=== PATIENT | male | born 1935 | race Caucasian/White ===

== ENCOUNTER 2019-04-01 09:38 | Emergency (ER) | payer MEDICARE, OTHER, SELFPAY ==
--- NOTE | ~2019-04-01 | CT_ITS ---
EXAMINATION: CT abdomen pelvis w con EXAM DATE: 04/01/2019 14:20 INDICATION: Abdominal pain and constipation. TECHNIQUE: Spiral CT of the abdomen and pelvis was performed following intravenous injection of 100 m L Omnipaque 350. Axial, coronal and sagittal images were reviewed. The dose-length product (DLP) fo r this examination was 260.54 mGy-cm. The exposure was tailored according to patient size (auto mA e xposure control), and iterative reconstruction (ASIR) was used as additional dose reduction technique . Comparison is made to prior examination from 06/13/2018. FINDINGS: The liver, spleen, adrenal glands and pancreas are unremarkable. Gallbladder is unremarkab le. No biliary obstruction. Portal and splenic veins are patent. Kidneys enhance symmetrically. T here is no hydronephrosis. The prostate is unremarkable. Bladder is severely distended. There is no retroperitoneal or pelvic lymphadenopathy. There is extensive scattered arterial sclerotic disea se. Abdominal aorta is normal in caliber. There is fecal impaction with the rectal vault measuring up to 8.6 cm, moderate amount of colonic sto ol proximal to this. Normal appendix. There are no osteoblastic or osteolytic lesions identified. T he stomach and small bowel are unremarkable. There is expected amount of colonic stool. No free in traperitoneal gas. The heart is normal in size. There are no pericardial or pleural effusions. Th e lung bases are unremarkable. Chronic appearing mild compression fracture of L4 at the superior end plate. IMPRESSION: 1. Fecal impaction, constipation. 2. Distended bladder. Reviewed, dictated and finalized at location B. 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
[2019-04-01 09:40] VITALS: BP 108/58; PULSE 88; RESP 20; TEMP 36.1; O2SAT 99
--- NOTE | 2019-04-01 10:48 | PC.NURSE ---
PT TO INTAKE DESK ASKING ABOUT WAIT, STATES THAT HER HAS BEEN IN A LOT OF PAIN, RN ASKS IF SOMETHING HAS CHANGED SINCE HE WAS TRIAGED, DENIES.
--- NOTE | 2019-04-01 12:12 | PC.NURSE ---
pt to room 08 per dean Sargent.
[2019-04-01 12:16] VITALS: BP 124/66; PULSE 67; O2SAT 100
--- NOTE | 2019-04-01 13:33 | ED.GENADULT ---
HPI - General Adult General Chief complaint: Unspecified Stated complaint: Constipation Time Seen by Provider: 04/01/19 13:32 Source: patient Mode of arrival: ambulatory Limitations: dementia History of Present Illness HPI narrative: Pt is an 83 y/o male with a H/O dementia, who presents to the ED with c/o intermittent generalized ABD pain for a couple of days. Per spouse, pt has been c/o intermittent ABD pain and his last BM was a couple of days ago. Spouse states that he gets flare ups of constipation in the past and he takes metamucil daily. Pt's spouse gave him a smooth lax (generic for Miralax) this morning with no relief. He denies pain in the ED bed. Pt's spouse denies pt having nausea or vomiting. Spouse states that he has been eating and drinking normally. A complete HPI is limited d/t pt's dementia. MD complaint: ABD pain Onset (ago): day(s) (2) Location: abdomen Severity: similar to prior episodes Pain Consistency: intermittent Relieving factors: none Associated symptoms: other (constipation) Treatments prior to arrival: other (laxatives) Related Data Home Medications Medication Instructions Recorded Confirmed allopurinol 100 mg tablet 100 mg PO DAILY 02/05/19 amlodipine 5 mg tablet 5 mg PO DAILY 02/05/19 aspirin 81 mg tablet,delayed 81 mg PO DAILY 02/05/19 release clopidogrel 75 mg tablet 75 mg PO DAILY 02/05/19 ezetimibe 10 mg tablet 10 mg PO DAILY 02/05/19 folic acid 400 mcg tablet 0.4 mg PO DAILY 02/05/19 zwhiipfgwbn-qgwrfzgxaeh-wgw D3 750 tablet PO 02/05/19 mg-600 mg-500 unit tablet hydrochlorothiazide 25 mg tablet 25 mg PO DAILY 02/05/19 losartan 25 mg tablet 25 mg PO DAILY 02/05/19 omega3-dha 200 mg-epa 300 mg-othr cap PO 02/05/19 om3 100 mg-fish oil 1,000 mg capsule psyllium husk 0.52 gram capsule 0.52 gm PO DAILY 02/05/19 Allergies Allergy/AdvReac Type Severity Reaction Status Date / Time dipyridamole Allergy Unknown Confusion Verified 12/13/18 09:48 Review of Systems Review of Systems: Narrative: A complete ROS is limited d/t pt's dementia Gastrointestinal: Gastrointestinal: Reports abdominal pain and Reports constipation PMFSH Past Medical History Medical History (Updated 04/01/19 @ 16:26 by Xena Thapa MD) Abnormality of gait Balance disorder Benign reactive hypertension Dementia Mixed hyperlipidemia Stroke Surgical History Surgical History (Updated 04/01/19 @ 13:50 by Cyndi Fatima) No significant past surgical history Social History Social History (Updated 04/01/19 @ 13:51 by Cyndi Fatima) Smoking packs per day: 0.5 Smoking cigarettes per day: 10.0 Smoking status: Former smoker Tobacco type: cigarettes Second hand tobacco smoke exposure: No Smoking end date: 03/06/1949 Alcohol intake: never Substance use: never Substance use type: does not use Gender identity (if verbalized by the patient): Male Comments Pt's PCP is Dr. Fuller. Exam Const: General: cooperative, no acute distress, alert and other (frail, elderly) Orientation/consciousness: Other orientation findings (forgetfull) Limitations: no limitations HENMT: Mouth: Yes lip normal and Yes moist mucous membranes Resp: Effort & Inspection: normal respiratory effort Auscultation: clear to auscultation bilaterally Cardio: Rate: regular rate Rhythm: regular rhythm Heart sounds: no murmurs Peripheral pulses: dorsalis pedis present bilateral GI: GI Palp: Yes Soft to palpation and Yes Tenderness to palpation present (GI) (RLQ) Auscultation: normal bowel sounds Skin: General skin exam: normal color Neuro: Cognition (Neuro): normal cognition Speech: normal speech Extrem: General: normal to inspection, full ROM and no clubbing, cyanosis or edema Psych: Mental Status: mental status grossly normal Affect: normal affect Attitude: cooperative Course Course Emergency Course: Patient with findings of constipation noted on CT. No other acute abnor
[2019-04-01 14:05] LABS: Basophils Percent Auto 0.5 % (0.2-1.2); Eosinophils Percent Auto 0.1 % (0-4.4); Hematocrit 44.4 % (42.0-52.0); Hemoglobin 14.5 g/dL (14.0-18.0); Immature Granulocyte Absolute 0.02 K/mm3 (0.00-0.031); Immature Granulocyte Percent A 0.2 % (0-0.5); Lymphocytes Absolute Auto 0.86 K/mm3 (0.9-3.2); Lymphocytes Percent Auto 10.1 % (18.3-44.2); Mean Corpuscular HGB Conc 32.7 g/dl (32-36); Mean Corpuscular Hemoglobin 30.3 pg (26-34); Mean Corpuscular Volume 92.9 fl (80-100); Mean Platelet Volume 10.3 fl (7.4-10.4); Monocytes Absolute Auto 0.4 K/mm3 (0.1-0.6); Monocytes Percent Auto 4.7 % (2.6-8.5); Neutrophils Absolute Auto 7.2 K/mm3 (1.3-6.7); Neutrophils Percent Auto 84.4 % (45.5-73.1); Platelet Count Result 220 k/mm3 (150-375); Red Blood Count 4.78 M/mm3 (4.6-6.20); Red Cell Distribution Width 12.7 % (11.5-14.5); White Blood Count 8.5 K/mm3 (4.5-10.0)
[2019-04-01 14:13] LABS: Blood Urea Nitrogen 43 mg/dL (8-26); Estimated CRCL calculation 31 ml/min; Estimated Glomerular Filt Rate 45
[2019-04-01 14:52] LABS: Alanine Aminotransferase 48 U/L (4-50); Albumin Level 3.5 g/dL (3.5-5.1); Alkaline Phosphatase 67 U/L (38-126); Aspartate Amino Transferase 39 U/L (17-59); Bilirubin,Total 0.5 mg/dL (0.2-1.3); Blood Urea Nitrogen 33 mg/dL (9-20); Carbon Dioxide 27 mmol/L (22-30); Chloride 97 mmol/L (98-107); Estimated CRCL calculation 31 ml/min; Estimated Glomerular Filt Rate 45; Glucose 104 mg/dL (75-110); Lipase 230 U/L (23-300); Potassium 3.4 mmol/L (3.4-5.0); Sodium 133 mmol/L (137-145)
[2019-04-01] MEDS: DOCUSATE SODIUM 400 MG/400 ML ENEMA RECTAL (15:11)
[2019-04-01 15:14] LABS: Add Urine Microscopic? YES; Appearance Urine Cloudy (Clear); Bacteria Urine 1+ /hpf; Bilirubin Urine Negative (Negative); Blood Urine 1+ (Negative); Color Urine Yellow (Yellow); Glucose Urine UA Negative (Negative); Hyaline Casts Urine 30-49 /lpf; Ketones Urine Negative (Negative); Leukocyte Esterase Ur 3+ LEU/UL (Negative); Mucus Urine Rare /lpf; Nitrate Urine Negative (Negative); Protein Urine 1+ mg/dL (Negative); RBC Urine >75 /hpf (0-2); Urobilinogen Urine Negative mg/dL (<2.0); WBC Urine >75 /hpf
[2019-04-01 15:23] LABS: Specific Grav Ur 1.039 (1.001-1.035)
[2019-04-01 16:37] VITALS: BP 126/62; PULSE 66; O2SAT 98
--- NOTE | 2019-04-09 12:03 | PC.NURSE ---
50ML OF IVPB CEFTRIAXONE COMPLETED INFUSION AT 1630 ON 04/01/2019
== END 2019-04-01 16:38 | disposition home or self-care (01) ==
PROVIDERS: Emergency Provider Emergency Medicine; PCP Family Medicine
DX: K59.00 Constipation, unspecified (principal); N30.00 Acute cystitis without hematuria; F03.90 Unspecified dementia, unspecified severity, without behavioral disturbance, psychotic disturbance, mood disturbance, and anxiety; I10 Essential (primary) hypertension; E78.2 Mixed hyperlipidemia; Z79.82 Long term (current) use of aspirin; Z87.891 Personal history of nicotine dependence
CPT/HCPCS: 36415; 74177; 80053; 81001; 83690; 85025; 87077; 87086; 87088; 87186; 96365; 99284; J0696; Q9967

== ENCOUNTER 2020-05-11 10:23 | Outpatient (CLI) | payer MEDICARE, OTHER, SELFPAY | END 2020-05-11 10:24 | disposition home or self-care (01) | LOC: ANHCOVIDVC 10:23 | PROVIDERS: PCP Family Medicine; Visit Provider Family Medicine | DX: Z23 Encounter for immunization (principal) | CPT/HCPCS: 0001A; 91300 ==

== ENCOUNTER 2020-06-01 10:24 | Outpatient (CLI) | payer MEDICARE, OTHER, SELFPAY | END 2020-06-01 10:25 | disposition home or self-care (01) | LOC: ANHCOVIDVC 10:24 | PROVIDERS: PCP Family Medicine; Visit Provider Family Medicine | DX: Z23 Encounter for immunization (principal) | CPT/HCPCS: 0002A; 91300 ==

== ENCOUNTER 2020-09-27 12:35 | Emergency (ER) | payer MEDICARE, OTHER, SELFPAY ==
[2020-09-27 12:44] VITALS: BP 108/47; PULSE 67; RESP 16; TEMP 36.2; O2SAT 100
--- NOTE | 2020-09-27 12:46 | ED.SKABFB ---
HPI - Skin/Abscess/Foreign Bdy General Chief complaint: Skin/Abscess/Foreign Body Stated complaint: head injury History of Present Illness HPI narrative: This is a 85 year old male that has a history of progressive dementia noted. Patient has for over a month had something growing from head and it has had a band aid on it but he has been scratching it as well and has been bleeding and it was very hard to stop bleeding . According to patient son he had blood all over his head and they are not sure why it was bleeding for so long and he denied that patient is on any anticoagulation. Patient denies any pain and or discomfort . Related Data Allergies Allergy/AdvReac Type Severity Reaction Status Date / Time dipyridamole Allergy Unknown Confusion Verified 05/12/20 13:20 Review of Systems Review of Systems: Narrative: CONSTITUTIONAL: Denies fever, chills, or sweats. EYES: Denies visual changes, redness, or discharge. ENT: Denies rhinorrhea, congestion, sore throat, or otalgia. CARDIOVASCULAR:Denies chest pain, palpitations, or edema. RESPIRATORY: Denies cough or dyspnea. GASTROINTESTINAL: Denies abdominal pain, nausea, vomiting, or diarrhea. GENITOURINARY: Denies dysuria or hematuria. SKIN:[Denies rash or itching. boggy growth on the top of the head with dry blood all over the head. MUSCULOSKELETAL:Denies back pain, joint pain, or myalgia. NEUROLOGIC: Denies headache, numbness, or weakness. PSYCHIATRIC:Denies anxiety or depression [facility] Past Medical History Medical History (Updated 09/27/20 @ 13:52 by Marva Meredith NP) Abnormality of gait Balance disorder Benign reactive hypertension Dementia Mixed hyperlipidemia Stroke Vascular dementia Surgical History Surgical History No significant past surgical history Social History Social History (Updated 05/12/20 @ 13:22 by Shruthi Roberts) Social History: Smoking packs per day: 0.5 Smoking cigarettes per day: 10.0 Smoking status: Former smoker Tobacco type: cigarettes Second hand tobacco smoke exposure: No Smoking end date: 03/06/1949 Alcohol intake: never Substance use: never Substance use type: does not use Gender identity (if verbalized by the patient): Male Comments At time as signature, I have reviewed and agree with nursing past medical, social, surgical and family history. Please see nursing chart for further information. There is no relevant family history pertinent to the presenting complaint. Exam Narrative: Exam Narrative: GENERAL:Well-appearing, well-nourished, and in no acute distress. HEAD:Normocephalic, dry blood all over head medium boggy growth noted on frontal bone at the top of head. Patient denies any pain with touch EYES: PERRLA and EOMI. ENT: Nares clear. Mucous membranes moist. NECK: Supple. CHEST: Clear to auscultation. No respiratory distress. HEART: Regular rate and rhythm. ABDOMEN: Soft, nontender, nondistended, normal active bowel sounds. EXTREMITIES: Normal range of motion. No edema. SKIN: Warm, dry, no rash. NEURO: No focal deficits. Alert and oriented x1-2. 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 I removed all the dry blood except for on the abnormal growth on the head d/t avoiding on causing more bleeding . Betadine on the head with normal saline. Patient tolerated well I then applied JACK and a 4x4 and taped it down so the patient does not scratch and make it bleed. I educated patient son on how to care for the area. NO bleeding noted. As I cleaned all of the blood from patient head there were no open areas identified. Just the soft growth on patient head where he scratched it and caused it to bleed. Educated family and referral given for Dermatology in [facility] . Explained to son I could not identify what was growing and informed him that I could not
== END 2020-09-27 14:09 | disposition home or self-care (01) ==
PROVIDERS: Emergency Provider Nurse Practitioner Family; PCP Family Medicine
DX: L98.9 Disorder of the skin and subcutaneous tissue, unspecified (principal); Z87.891 Personal history of nicotine dependence; F03.90 Unspecified dementia, unspecified severity, without behavioral disturbance, psychotic disturbance, mood disturbance, and anxiety; E78.2 Mixed hyperlipidemia; Z86.73 Personal history of transient ischemic attack (TIA), and cerebral infarction without residual deficits
CPT/HCPCS: 99211; G0463

== ENCOUNTER 2020-10-27 08:40 | Outpatient (CLI) | payer MEDICARE, OTHER, SELFPAY ==
[2020-10-27 10:31] LABS: Anion Gap 9 mmol/L (8-16); Blood Urea Nitrogen 28 mg/dL (9-20); Calcium 9.6 mg/dL (8.4-10.2); Carbon Dioxide 27 mmol/L (22-30); Chloride 100 mmol/L (98-107); Estimated Glomerular Filt Rate 32; Glucose 124 mg/dL (65-110); Sodium 136 mmol/L (137-145)
== END 2020-10-27 08:41 | disposition home or self-care (01) ==
PROVIDERS: Anesthesiology; PCP Family Medicine; Visit Provider Plastic Surgery
DX: Z01.818 Encounter for other preprocedural examination (principal)
CPT/HCPCS: 36415; 80048

== ENCOUNTER 2020-10-29 02:17 | Day surgery (SDC) | payer MEDICARE, OTHER, SELFPAY ==
[2020-10-26 14:50] VITALS: BMI 25.0
--- NOTE | 2020-10-28 13:44 | P.PNAN_ITS ---
Anes - Initial Pre Proc Eval Procedure: Operation Date: 10/29/20 11:30 Proposed Procedures p Excision Friable Mass Top of Head with Frozen Section and Full Thickness Skin Graft, Excision Neoplasm Unspecified Behavior Left Zygoma - Jesus Simental MD Date/Time: 10/28/20 13:44 Surgeon: Jesus Simental MD Pre Op Diagnosis: skin mass top of head, neoplasm left zygoma Patient Data Age: 85 Gender: M Height: 1.7 m Weight: 72.6 kg Allergies Allergy/AdvReac Type Severity Reaction Status Date / Time dipyridamole Allergy Unknown Confusion Verified 10/29/20 09:50 Home Medications Medication Instructions Recorded Confirmed Type mecobalamin-levomefolate 1 tablet PO BID #180 tablet 06/08/20 10/29/20 Rx calcium-pyridoxal phos 3 mg-35 mg-2 mg tablet aspirin 81 mg tablet,delayed 81 mg PO DAILY #90 tablet 09/04/20 10/29/20 Rx release clopidogrel 75 mg tablet 75 mg PO DAILY #90 tablet 09/04/20 10/29/20 Rx hydrochlorothiazide 25 mg tablet 12.5 mg PO DAILY #90 tablet 09/04/20 10/29/20 Rx losartan 25 mg tablet 12.5 mg PO DAILY #45 tablet 10/13/20 10/29/20 Rx allopurinol 100 mg PO HS 10/26/20 10/29/20 History amlodipine 5 mg PO QAM 10/26/20 10/29/20 History glucos sul [id number]-[id number]-Mn 1 cap PO BID 10/26/20 10/29/20 History [Glucosamine Chondroitin] rosuvastatin 20 mg PO HS 10/26/20 10/29/20 History Patient hx anesthesia problems: none Family hx anesthesia problems: none [facility] Past Medical History Medical History (Updated 10/13/20 @ 14:15 by Cassidy Fuller MD) Abnormality of gait Balance disorder Benign reactive hypertension Dementia Mixed hyperlipidemia Stroke Vascular dementia Surgical History Surgical History No significant past surgical history Social History Social History (Updated 10/13/20 @ 13:26 by Shruthi Roberts) Social History: Smoking packs per day: 0.5 Smoking cigarettes per day: 10.0 Smoking status: Former smoker Tobacco type: cigarettes Second hand tobacco smoke exposure: No Smoking end date: 03/06/1949 Alcohol intake: never Substance use: never Substance use type: does not use Gender identity (if verbalized by the patient): Male Anes - Eval Final PreProcedure Day of Procedure 10/28/20 13:44 Patient weight: normal Heart: regular rate and rhythm Lungs: clear to auscultation and normal air movement Airway: Mallampati scale class II Neurological: alert and oriented Last oral intake: >/= 8 hours ASA classification: III Emergent: no Anesthetic plan: proceed Anesthesia type and monitoring: general GIVS and LMA Informed Consent: The patient's anesthetic plan and its attendant risks and benefits were discussed with the patient/family/POA. Questions were solicited and answers provided to the satisfaction of the patient/family/POA.
--- NOTE | 2020-10-29 07:19 | WPDHPUPDATE1 ---
History and Physical Update Update Date/Time: 10/29/20 07:19 History and Physical has been reviewed, including an updated exam of the patient. There are NO changes in the patient's condition. Risks, benefits, and alternatives have been discussed and questions answered. Patient agrees to proceed with procedure.
[2020-10-29 09:57] VITALS: BP 121/55; PULSE 52; RESP 18; TEMP 36.5; O2SAT 100; BMI 21.2
[2020-10-29] MEDS: LACTATED RINGERS 1,000 ML 30 ML IV CONT (10:06)
[2020-10-29] MEDS: ceFAZolin 2 GM/D5W 50 ML 2 GM/50 ML BAG IVPB (11:30)
--- NOTE | 2020-10-29 11:47 | SUR.OPER ---
frozen section specemin sent with hunter Batista and received in pathology by Nay
[2020-10-29] MEDS: LIDO 1%/EPINEPHRINE 1:100,000 50 ML VIAL INFILTRATE (12:00)
[2020-10-29 12:59] VITALS: BP 110/53; PULSE 76; RESP 14; O2SAT 94
[2020-10-29 13:25] VITALS: BP 110/53; PULSE 67; RESP 16; O2SAT 95
--- NOTE | 2020-10-29 13:25 | P.OPB_ITS ---
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
[2020-10-29 13:55] VITALS: BP 101/53; PULSE 70; RESP 16
--- NOTE | 2020-10-29 15:19 | W.PM.PROC2 ---
Procedure Note - Detailed Date of Procedure 10/29/20 Pre-op Diagnosis skin mass top of head, neoplasm left zygoma Post-op Diagnosis other (Squamous cell carcinoma top of head and neoplasm unspecified behavior of the left zygoma) Procedure Performed 1.5 cm excision of neoplasm of the left zygoma with permanent section and intermediate repair 3 cm. 3-1/2 cm excision of squamous cell carcinoma of the top of the head with frozen section and full-thickness skin graft 10 sq cm. Surgeon Jesus Simental MD Automotive Salesperson Loni arenas Anesthesia MAC Description of Procedure The 2 sites were marked on the patient waiting in the holding area. He was taken to the operating room and placed supine on the operating table. He was given IV sedation and the head neck and left thigh were prepped and draped in usual fashion. A time-out was held and confirmed. The 2 sites were marked for excision and locally infiltrated with 1% lidocaine with epinephrine. The nodule on the left zygoma was excised and sent for permanent section. That was a 1.5 cm excision and the wound was closed with intradermal 4-0 Vicryl and a running 5 0 nylon. The friable red fungating neoplasm on the top of the head was excised well through the scalp while preserving the galea. This was marked at the anterior tip for 12 o'clock identification and sent for frozen section. The pathologist revealed the diagnosis of squamous cell carcinoma and that margins were free. Skin graft was harvested from the left supra clavicular space, defatted and applied to the wound with running nylon sutures, some quilting stitches and the tie-over bolster dressing Estimated Blood Loss 15 Drains No Packing No Pathology yes Complications No immediate complications Condition stable Disposition PACU
== END 2020-10-29 14:20 | disposition home or self-care (01) ==
PROVIDERS: PCP Family Medicine; Visit Provider Plastic Surgery
PROC: (CPT 11624; principal; 2020-10-29 11:30)
DX: D04.4 Carcinoma in situ of skin of scalp and neck (principal); D04.39 Carcinoma in situ of skin of other parts of face
CPT/HCPCS: 11624; 15220; 11642; 12052; 88305; 88331; 88332; J0690; J2704; J7120

== ENCOUNTER 2021-05-29 18:46 | Emergency (ER) | payer MEDICARE, OTHER, SELFPAY ==
[2021-05-29] VITALS (34 sets, daily range): BP systolic 93–141; BP diastolic 36–116; PULSE 51–87; RESP 10–19; TEMP 36.2; O2SAT 96–100
--- NOTE | ~2021-05-29 | CT_ITS ---
EXAMINATION: CT brain wo con EXAM DATE: 05/29/2021 19:12 INDICATION: Head injury, on blood thinners. TECHNIQUE: Spiral CT of the head was performed without contrast. Axial, coronal and sagittal images were reviewed. The dose-length product (DLP) for this examination was 681.00 mGy-cm. The exposure w as tailored according to patient size, and iterative reconstruction (ASIR) was used as additional dos e reduction technique. There is no prior study for comparison. FINDINGS: Bilateral caudate head and left basal ganglia old lacunar infarctions. There is no acute in traparenchymal hemorrhage. No evidence of intraparenchymal brain mass lesion. No evidence of acute infarction. Please note that initial head CT has limited sensitivity for small or acute infarctions. There is moderate periventricular and subcortical hypodensity, nonspecific but probably related to s mall vessel ischemic disease. There is moderate prominence of the sulci and ventricles related to c erebral atrophy. There is intracranial carotid arteriosclerosis. There are no extra-axial collecti ons. There is no mass effect or midline shift. The orbits are unremarkable. Small left frontal sca lp contusion. Overlying laceration. The visualized sinuses and mastoid air cells are well aerated. IMPRESSION: 1. No acute intracranial findings. 2. Chronic age related findings. 3. Old lacunar infarctions. 4. Small left frontal scalp contusion, laceration. Reviewed, dictated and finalized at location G.
--- NOTE | ~2021-05-29 | XR_ITS ---
EXAMINATION: XR hip BI 2V w AP pelvis EXAM DATE: 05/29/2021 19:52 INDICATION: Fell Off Ladder Today, Pain More To Left Side, Hard To Move TECHNIQUE: Frontal projection pelvis. Frontal, frog-leg projections of the right hip. Frontal, crosst able lateral projections of the left hip. There are no prior studies for comparison. FINDINGS: No radiographic evidence of hip avascular necrosis. There is mild to moderate symmetric bi lateral hip primary osteoarthritis. There are no acute fractures or dislocations identified. There i s no subcutaneous gas. The soft tissue is unremarkable. There are no radiopaque foreign bodies. IMPRESSION: No pelvic or hip fractures suspected. 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 Reviewed, dictated and finalized at location G. IMPRESSION: No pelvic or hip fractures suspected. Mild to moderate hip osteoart hritis.
--- NOTE | ~2021-05-29 | CT_ITS ---
EXAMINATION: CT cervical spine wo con EXAM DATE: 05/29/2021 19:12 INDICATION: Fall, head injury. TECHNIQUE: Spiral CT of the cervical spine was performed without contrast. Axial images were reviewe d. Coronal and sagittal reformatted images cervical spine were also reviewed. The dose-length produc t (DLP) for this examination was 250.21 mGy-cm. The exposure was tailored according to patient size (auto mA exposure control), and iterative reconstruction (ASIR) was used as additional dose reduction technique. There is no prior study for comparison. FINDINGS: Severe right-sided facet arthropathy and lower cervical disc disease. There is no evidence of acute cervical fracture. The odontoid process is intact. Pre-dens space is normal. Prevertebral soft tissue is normal. There are no soft tissue abnormalities identified. There is no disc space w idening or traumatic vertebral body subluxation suspected. Vertebral body and disc heights are well- maintained. A detailed level by level evaluation of spondylosis can be added as addendum if request ed. IMPRESSION: 1. No acute cervical fracture. 2. Cervical spondylosis. Reviewed, dictated and finalized at location G.
--- NOTE | 2021-05-29 18:53 | ED.HEATRA ---
HPI - Head Injury General Chief complaint: Head Injury Stated complaint: unwitnessed fall Time Seen by Provider: 05/29/21 18:51 Source: EMS Mode of arrival: EMS Limitations: dementia History of Present Illness HPI Narrative: Patient is an 86-year-old male brought in by EMS after he was found on the floor at the longterm by staff. According to EMS patient is wheelchair-bound but was able to stand up when they picked him up from the floor. Patient has dementia and nonverbal, very poor historian. Related Data Home Medications Medication Instructions Recorded Confirmed Glucosamine Chondroitin 1 cap PO BID 10/26/20 10/29/20 allopurinol 100 mg PO HS 10/26/20 10/29/20 amlodipine 5 mg PO QAM 10/26/20 10/29/20 rosuvastatin 20 mg PO HS 10/26/20 10/29/20 Allergies Allergy/AdvReac Type Severity Reaction Status Date / Time dipyridamole Allergy Unknown Confusion Verified 10/29/20 09:50 Review of Systems Review of Systems: Per HPI All systems reviewed & are unremarkable except as noted in HPI and below ROS unobtainable: Yes other (Dementia) [facility] Past Medical History Medical History (Updated 05/29/21 @ 20:23 by Jesus Menchaca MD) Abnormality of gait Balance disorder Benign reactive hypertension Dementia Mixed hyperlipidemia Stroke Vascular dementia Surgical History Surgical History No significant past surgical history Social History Social History Social History: Smoking packs per day: 0.5 Smoking cigarettes per day: 10.0 Smoking status: Former smoker Tobacco type: cigarettes Second hand tobacco smoke exposure: No Smoking end date: 03/06/1949 Alcohol intake: never Substance use: never Substance use type: does not use Gender identity (if verbalized by the patient): Male Sexual Orientation (if Verbalized by the Patient): Straight or Heterosexual Exam Const: General: no acute distress, alert and confusion Limitations: other limitations (Nonverbal unable to follow any commands) HENMT: Head: no lacerations Ears: external ears normal General nose exam: Normal nares present and no epistaxis Mouth: Yes moist mucous membranes Other: Contusion, abrasion left frontal head Eyes: Conjunctivae: conjunctivae normal Pupils: Equal, round and reactive pupils present EOM: EOMs intact bilaterally Neck: Neck: normal visual inspection Chest: Chest palpation & inspection: normal inspection of the chest Resp: Effort & Inspection: normal respiratory effort, not labored, no retractions and not tachypneic Auscultation: clear to auscultation bilaterally Cardio: Rate: regular rate Rhythm: regular rhythm Heart sounds: Murmur heart sound present GI: GI Palp: Yes Soft to palpation, No Guarding due to palpation present (GI) and No Rigid due to palpation Skin: General skin exam: normal color Neuro: Other: Patient is nonverbal and unable to follow any commands Not oriented to time place and name Extrem: General: normal to inspection Psych: Appearance: other Other: Flat affect Course Vital Signs Vital signs: Vital Signs Temperature 36.2 C L 05/29/21 18:47 Pulse Rate 60 05/29/21 18:47 Respiratory Rate 12 05/29/21 18:47 Blood Pressure 135/53 L 05/29/21 18:47 Pulse Oximetry 99 05/29/21 18:47 Temperature 36.2 C L 05/29/21 18:47 Pulse Rate 54 L 05/29/21 19:16 Respiratory Rate 10 L 05/29/21 19:16 Blood Pressure 127/52 L 05/29/21 19:16 Pulse Oximetry 100 05/29/21 19:16 MDM - Head Injury Differential Diagnosis Differential diagnosis: Likely concussion without loss of consciousness, closed head injury, subdural hematoma and concussion with loss of consciousness Discharge Plan Discharge Clinical Impression: Fall in elderly patient Closed head injury Qualifiers: Encounter type: initial encounter Qualified Code(s): S09.90XA - Unspec
--- NOTE | 2021-05-29 19:30 | PC.NURSE ---
Pts son ([facility]) [phone]
--- NOTE | 2021-05-29 20:05 | PC.NURSE ---
Both pts sons Kevan and Best called for update. Informed of pts status and aware pf plan.
--- NOTE | 2021-05-29 20:30 | PC.NURSE ---
Pts wound cleansed with wound cleanser. Pt tolerated well. Surgcele applie per ERP verbal order. Bleeding controlled. Pt tolerated well.
[2021-05-29] MEDS: CELLULOSE OXIDIZED 2 x 14 INCH 1 PKT XX (20:46)
--- NOTE | 2021-05-29 21:02 | PC.NURSE ---
called [facility] to request transport. ETA [id number] called [facility], [facility], and [facility] to request transport. None are available.
--- NOTE | 2021-05-29 21:23 | PC.NURSE ---
pt provided a sandwich, chips, and peaches while waiting for transport back to [facility]. Pt picked off dressing to forhead and arm. Area bleeding. Wound care performed. New dressing applied.
--- NOTE | 2021-05-29 23:40 | PC.NURSE ---
pt found trying to get out of bed. Pt assited back into bed. Call light placed under pt.
[2021-05-30] VITALS: PULSE 57; RESP 12
[2021-05-30 00:01] VITALS: BP 115/49; PULSE 58; RESP 12
[2021-05-30 00:15] VITALS: PULSE 58; RESP 12
[2021-05-30 00:16] VITALS: BP 128/51; PULSE 56; RESP 12
[2021-05-30 00:30] VITALS: PULSE 55; RESP 12
[2021-05-30 00:31] VITALS: BP 121/53; PULSE 58; RESP 13; O2SAT 97
--- NOTE | 2021-05-30 01:04 | PC.NURSE ---
[facility] here
== END 2021-05-30 01:09 ==
PROVIDERS: Emergency Provider Emergency Medicine; PCP Family Medicine
DX: S09.90XA Unspecified injury of head, initial encounter (principal); F01.50 Vascular dementia, unspecified severity, without behavioral disturbance, psychotic disturbance, mood disturbance, and anxiety; I10 Essential (primary) hypertension; E78.2 Mixed hyperlipidemia; R26.9 Unspecified abnormalities of gait and mobility; Z86.73 Personal history of transient ischemic attack (TIA), and cerebral infarction without residual deficits; Z87.891 Personal history of nicotine dependence; W19.XXXA Unspecified fall, initial encounter
CPT/HCPCS: 70450; 72125; 73521; 99284

== ENCOUNTER 2021-10-20 11:08 | Emergency (ER) | payer MEDICARE, OTHER, SELFPAY ==
[2021-10-20] VITALS (29 sets, daily range): BP systolic 94–148; BP diastolic 48–122; PULSE 49–61; RESP 10–18; TEMP 36.6; O2SAT 99–100
--- NOTE | 2021-10-20 11:24 | ECG_ITS ---
Measurements Intervals [place] Rate: 49 P: 48 TX: 175 QRS: 69 QRSD: 89 T: 69 QT: 512 QTc: 466 Interpretive Statements SINUS BRADYCARDIA PROLONGED QT INTERVAL ABNORMAL ECG NO PREVIOUS ECG AVAILABLE FOR COMPARISON Electronically Signed On 10-20-2021 12:36:23 CDT by Santo Clark M.D.
--- NOTE | 2021-10-20 11:45 | ED.RECABL ---
HPI - Recheck/Abnormal Lab/Rx General Chief Complaint: Recheck/Abnormal Lab/Rx <Luzma Moura PA-C - Last Filed: 10/20/21 17:34> Stated Complaint: abnormal labs <Luzma Moura PA-C - Last Filed: 10/20/21 17:34> Time Seen by Provider: 10/20/21 11:21 <Luzma Moura PA-C - Last Filed: 10/20/21 17:34> History of Present Illness HPI narrative: Patient presents here for abnormal labs; denies any symptoms. <Camelia Flowers MD - Last Filed: 10/20/21 18:31> Related Data Home Medications: Home Medications Medication Instructions Recorded Confirmed allopurinol 100 mg tablet 100 mg PO HS 10/26/20 10/29/20 amlodipine 5 mg tablet 5 mg PO QAM 10/26/20 10/29/20 glucosamine sulf dipot 1 cap PO BID 10/26/20 10/29/20 chlr,msm,chond 550 mg-C 30 mg-evita 1 mg capsule (Glucosamine Chondroitin) rosuvastatin 20 mg tablet 20 mg PO HS 10/26/20 10/29/20 <Luzma Moura PA-C - Last Filed: 10/20/21 17:34> Allergies/Adverse Reactions: Allergies Allergy/AdvReac Type Severity Reaction Status Date / Time dipyridamole Allergy Unknown Confusion Verified 10/20/21 11:53 <Luzma Moura PA-C - Last Filed: 10/20/21 17:34> Review of Systems Review of Systems: CONST: No fever. HEENT: No sore throat C/V: No chest pain RESP: No difficulty breathing GI: No abdominal pain : No dysuria. M/S: No joint pain. SKIN: No rash. NEURO: [No headache] PSYCH: [No depression] <Camelia Flowers MD - Last Filed: 10/20/21 18:31> PMFSH Past Medical History Medical History: Medical History Abnormality of gait Balance disorder Benign reactive hypertension Dementia Mixed hyperlipidemia Stroke Vascular dementia <Luzma Moura PA-C - Last Filed: 10/20/21 17:34> Surgical History Surgical History: Surgical History No significant past surgical history <Luzma Moura PA-C - Last Filed: 10/20/21 17:34> Social History Social History: Social History Social History: Smoking packs per day: 0.5 Smoking cigarettes per day: 10.0 Smoking status: Former smoker Tobacco type: cigarettes Second hand tobacco smoke exposure: No Smoking end date: 03/06/1948 Alcohol intake: never Substance use: never Substance use type: does not use Gender identity (if verbalized by the patient): Male Sexual Orientation (if Verbalized by the Patient): Straight or Heterosexual <Luzma Moura PA-C - Last Filed: 10/20/21 17:34> Exam Narrative: EXAMINATION OF ORGAN SYSTEMS/BODY AREAS: Constitutional: Vital signs per nursing GENERAL:[No acute distress, non-toxic appearing.] HEAD: Normal with no signs of head trauma. EYES: EOMI, conjunctiva normal ENT: Moist mucous membranes LUNGS: Nonlabored breathing. HEART: [Regular rate and rhythm] ABD: No distension EXT: Normal range of motion SKIN: [No rashes or lesions.] NEURO: [Alert. No gross focal sensory or strength deficits.] PSYCH: Normal affect <Camelia Flowers MD - Last Filed: 10/20/21 18:31> Course Consultations Consultation #1: I did speak with his primary about work-up to ensure follow-up. <Luzma Moura PA-C - Last Filed: 10/20/21 17:34> Date: 10/20/21 <Luzma Moura PA-C - Last Filed: 10/20/21 17:34> Vital Signs Vital signs: Vital Signs Temperature 97.8 F 10/20/21 11:07 Pulse Rate 50 L 10/20/21 11:07 Respiratory Rate 12 10/20/21 11:07 Blood Pressure 140/88 10/20/21 11:07 Pulse Oximetry 99 10/20/21 11:07 Oxygen Delivery Room Air 10/20/21 11:07 Temperature 97.8 F 10/20/21 11:07 Pulse Rate 56 L 10/20/21 17:45 Respiratory Rate 13 10/20/21 17:45 Blood Pressure 124/86 10/20/21 17:45 Pulse Oximetry 99 10/20/21 17:45 Oxygen Delivery Room Air 10/20/21 11:07 <Luzma Moura PA-C - Last Filed: 10/20/21 17
[2021-10-20 11:46] LABS: Alanine Aminotransferase 46 U/L (6-50); Alkaline Phosphatase 103 U/L (38-126); Anion Gap 6 mmol/L (8-16); Aspartate Amino Transferase 70 U/L (17-59); Bilirubin,Total 0.6 mg/dL (0.2-1.3); Blood Urea Nitrogen 32 mg/dL (9-20); Calcium 8.9 mg/dL (8.4-10.2); Carbon Dioxide 34 mmol/L (22-30); Chloride 103 mmol/L (98-107); Estimated CRCL calculation 20 ml/min; Estimated Glomerular Filt Rate 30; Glucose 86 mg/dL (65-110); Magnesium 2.6 mg/dL (1.6-2.3); Potassium 2.8 mmol/L (3.4-5.0); Sodium 143 mmol/L (137-145)
[2021-10-20 11:51] LABS: Basophils Percent Auto 0.5 % (0.2-1.2); Hematocrit 38.6 % (42.0-52.0); Hemoglobin 12.4 g/dL (14.0-18.0); Immature Granulocyte Absolute 0.01 K/mm3 (0.00-0.031); Immature Granulocyte Percent A 0.3 % (0-0.5); Lymphocytes Absolute Auto 0.93 K/mm3 (0.9-3.2); Lymphocytes Percent Auto 23.7 % (18.3-44.2); Mean Corpuscular HGB Conc 32.1 g/dl (32-36); Mean Corpuscular Hemoglobin 29.7 pg (26-34); Mean Corpuscular Volume 92.6 fl (80-100); Mean Platelet Volume 10.3 fl (7.4-10.4); Monocytes Absolute Auto 0.4 K/mm3 (0.1-0.6); Monocytes Percent Auto 8.9 % (2.6-8.5); Neutrophils Absolute Auto 2.6 K/mm3 (1.3-6.7); Neutrophils Percent Auto 65.6 % (45.5-73.1); Platelet Count Result 156 k/mm3 (150-375); Red Blood Count 4.17 M/mm3 (4.6-6.20); Red Cell Distribution Width 13.4 % (11.5-14.5); White Blood Count 3.9 K/mm3 (4.5-10.0)
[2021-10-20] MEDS: POTASSIUM CHLORIDE INJ 40 MEQ in SODIUM CHLORIDE 0.9% IV 500 ML 130 MEQ IVPB (12:12)
--- NOTE | 2021-10-20 13:33 | PC.NURSE ---
spoke w/ chaya from pt. care facility for pt. update.
[2021-10-20 16:18] LABS: Potassium 3.3 mmol/L (3.4-5.0)
== END 2021-10-20 20:58 ==
PROVIDERS: Physician Assistant; Emergency Provider Emergency Medicine; PCP Family Medicine
DX: E87.6 Hypokalemia (principal); R00.1 Bradycardia, unspecified; I10 Essential (primary) hypertension; E78.2 Mixed hyperlipidemia; F01.50 Vascular dementia, unspecified severity, without behavioral disturbance, psychotic disturbance, mood disturbance, and anxiety; Z66 Do not resuscitate; Z86.73 Personal history of transient ischemic attack (TIA), and cerebral infarction without residual deficits
CPT/HCPCS: 36415; 80053; 83735; 84132; 85025; 93005; 96365; 96366; 99284; J3480; J7040